=== PATIENT | male | born 1960 | race Caucasian/White ===

== ENCOUNTER → 2019-03-16 10:25 | Outpatient (CLI) | payer OTHER, SELFPAY ==
[2019-03-16 12:45] LABS: Albumin, Serum 3.6 g/dL (3.2-5.0); BUN 19 mg/dL (7-18); BUN/Creat Ratio 8.3 RATIO (10-20); Calcium,Total 9.1 mg/dL (8.5-10.1); Chloride 109 mmol/L (98-107); Creatinine, Serum 2.28 mg/dL (0.70-1.30); EST Glomerular Filtration Rate 31 mL/min (>60); Est Glom Filt Rate - Afr Amer 38 mL/min (>60); Glucose 116 mg/dL (74-106); Phosphorus 2.8 mg/dL (2.5-4.9); Potassium 4.2 mmol/L (3.5-5.1); Sodium Level 141 mmol/L (136-145)
== END ==
PROVIDERS: Family Provider Internal Medicine; PCP Internal Medicine; Visit Provider Internal Medicine Nephrology
DX: N18.3 Chronic kidney disease, stage 3 (moderate) (principal)
CPT/HCPCS: 36415; 80069

== ENCOUNTER → 2019-06-15 09:38 | Outpatient (CLI) | payer OTHER, SELFPAY ==
[2017-03-24 23:13] VITALS: BMI 32.7
[2019-06-15 09:42] LABS: Bacteria 0 SEEN /hpf (None Seen); Mucous, Urine 0 SEEN /hpf (<or=2+); Red Blood Cells-Urine 0 SEEN /hpf (0-5); Squamous Epithelial Cells - UA 0 SEEN /hpf (0-5); White Blood Cells 0 SEEN /hpf (0-5)
[2019-06-15 12:18] LABS: Color, Urine Yellow (Yellow); Glucose, Dipstick Normal (Normal); Ketone-Dipstick Negative (Negative); Leukocyte Esterase-Dipstick Negative /ul (Negative); Nitrite-Dipstick Negative (Negative); Occult Blood-Urine Negative /ul (Negative); Protein-Dipstick Negative (Negative); Urine Bilirubin Dipstick Negative (Negative); Urine Clarity Clear (Clear); Urine Urobilinogen Normal (Normal)
== END ==
LOC: POLAB3 09:39 → LABSPEC 09:42
PROVIDERS: PCP Internal Medicine; Visit Provider Internal Medicine Nephrology
DX: N17.9 Acute kidney failure, unspecified (principal)
CPT/HCPCS: 36415; 81001

== ENCOUNTER → 2019-06-22 09:29 | Outpatient (CLI) | payer OTHER, SELFPAY ==
[2017-03-24 23:13] VITALS: BMI 32.7
--- NOTE | 2019-06-22 09:39 | US_ITS ---
STUDY: RENAL ULTRASOUND - COMPLETE REASON FOR EXAM: Male, 58 years old. ACUTE KIDNEY FAILURE TECHNIQUE: Ultrasound evaluation of the kidneys was performed with real-time and static brown-scale imaging. COMPARISON: None. FINDINGS: RIGHT KIDNEY: Normal location of the right kidney, which is normal in size. The right kidney measures 11 cm x 5.1 cm x 5.7 cm. There is a normal cortex of the right kidney. The renal cortex measures 1.9 cm. There is a 1.9 cm x 2.3 cm x 1.9 cm cyst in the upper pole of the right kidney. There are no right renal calculi. There is no right hydronephrosis. DISTAL RIGHT URETER: There is non-visualization of the distal right ureter. There is no demonstrated right ureterovesical junction calculus. There is a visualized right ureteral jet. LEFT KIDNEY: with mild renal atrophy. The left kidney measures 8.2 cm x 3.6 cm x 5.0 cm. There is a normal cortex of the left kidney. The renal cortex measures 1.3 cm. There is a 2.5 cm x 3.3 cm x 2.4 cm complex cyst in the upper pole. Correlation with the scan is recommended. There are no left renal calculi. There is no left hydronephrosis. DISTAL LEFT URETER: There is non-visualization of the distal left ureter. There is no demonstrated left ureterovesical junction calculus. There is no demonstrated left ureteral jet. BLADDER: The distended urinary bladder has a volume of 129 ml. There is a normal wall thickness of the distended urinary bladder. There is no demonstrated mass within the urinary bladder. There are no demonstrated bladder calculi. US/Kidney and Bladder IMPRESSION: Complex cyst in the upper pole of the left kidney. Correlation with a CT scan is recommended. Electronically Signed: Jay Bassett, at 11:11 EDT , Service support ,
== END ==
PROVIDERS: Family Provider Internal Medicine; PCP Internal Medicine; Referring Provider Internal Medicine Nephrology; Visit Provider Internal Medicine Nephrology
DX: N17.9 Acute kidney failure, unspecified (principal)
CPT/HCPCS: 76770

== ENCOUNTER → 2019-08-14 13:20 | Outpatient (CLI) | payer OTHER, SELFPAY ==
--- NOTE | 2019-08-14 13:27 | CT_ITS ---
STUDY: CT ABDOMEN AND PELVIS WITHOUT CONTRAST REASON FOR EXAM: Male, 59 years old. CKD3, LEFT RENAL CYST, ABNORMAL LABS RADIATION DOSAGE (If Supplied By Facility): CTDIvol = ( 14.75 ) mGy, DLP = ( 771.33 ) mGycm TECHNIQUE: Transaxial images were obtained from the dome of the diaphragm to the symphysis pubis without oral contrast, and without intravenous contrast. Sagittal and coronal images were reconstructed. Individualized dose optimization techniques were used for this CT. COMPARISON: None. FINDINGS: Increased interstitial markings at the lung bases with confluence more prominent on the right side suggestive of chronic interstitial fibrosis. Coronary artery calcification. Normal liver. Normal gallbladder and extrahepatic biliary system. Normal spleen. Normal pancreas. There is a small, circumscribed, smooth, low attenuation left adrenal mass, consistent with an adrenal adenoma. This measures 2.6 cm by 1.9 cm. Normal right adrenal gland. Normal right kidney. There is a 3.4 cm by 2.7 cm cyst in the upper medial portion of the left kidney. There is also evidence of a 1.5 cm x 2.2 cm hypodense nodule in the anterior lateral aspect of the left kidney. This is not a typical cyst. There is a small hiatal hernia. Normal small intestine. There are multiple colonic diverticula consistent with diverticulosis. The appendix is visualized and appears normal. There is diffuse atherosclerotic calcification of the abdominal aorta. There is a aneurysmal dilatation of the infrarenal abdominal aorta with a transverse dimension of 5.3 cm. Normal inferior vena cava. Normal retroperitoneum. Mildly thickened urinary bladder wall. There are prostatic calcifications. Normal abdominal wall. There are diffuse degenerative changes of the visualized lumbar spine. CT/Abdomen/Pelvis without Cont IMPRESSION: Left renal cyst medially. 1.5 cm x 2.2 cm hypodense nodule in the anterior lateral aspect of the left kidney. This not a typical cyst. Prior sonogram of the left kidney demonstrated this to be a complex cyst. 2.6 x 1.9 cm left adrenal adenoma. Infrarenal abdominal aortic aneurysm with a transverse dimension of 5.3 cm. Chronic interstitial fibrosis worse at the right lung base. Electronically Signed: Jay Bassett, at 13:52 EDT , Service support ,
== END ==
PROVIDERS: PCP Internal Medicine; Referring Provider Nurse Practitioner Adult Health; Visit Provider Nurse Practitioner Adult Health
DX: N28.1 Cyst of kidney, acquired (principal)
CPT/HCPCS: 74176

== ENCOUNTER → 2019-08-31 09:22 | Outpatient (CLI) | payer OTHER, SELFPAY ==
[2017-03-24 23:13] VITALS: BMI 32.7
[2019-08-31 13:08] LABS: Urine Sodium 71 mmol/L (Not Establ.)
== END ==
PROVIDERS: PCP Internal Medicine; Visit Provider Internal Medicine Nephrology
DX: N17.9 Acute kidney failure, unspecified (principal); N18.3 Chronic kidney disease, stage 3 (moderate)
CPT/HCPCS: 82570; 84300

== ENCOUNTER → 2019-09-05 16:16 | Outpatient (CLI) | payer OTHER, SELFPAY ==
[2017-03-24 23:13] VITALS: BMI 32.7
== END ==
PROVIDERS: PCP Internal Medicine; Referring Provider Internal Medicine Nephrology; Visit Provider Internal Medicine Nephrology
DX: N18.3 Chronic kidney disease, stage 3 (moderate) (principal)
CPT/HCPCS: 82570

== ENCOUNTER → 2020-02-26 06:40 | Outpatient (CLI) | payer OTHER, SELFPAY ==
--- NOTE | 2020-02-26 06:42 | CT_ITS ---
STUDY: CT ABDOMEN AND PELVIS WITHOUT CONTRAST REASON FOR EXAM: Male, 59 years old. FOLLOW UP RENAL CYST RADIATION DOSAGE (If Supplied By Facility): CTDIvol = ( 20.94 ) mGy, DLP = ( 1098.75 ) mGycm TECHNIQUE: Transaxial images were obtained from the dome of the diaphragm to the symphysis pubis without oral contrast, and without intravenous contrast. Sagittal and coronal images were reconstructed. Individualized dose optimization techniques were used for this CT. COMPARISON: Comparison is made with prior study dated 08/14/2019. FINDINGS: Stable increased interstitial markings at both lung bases with areas of confluence worse on the right side. This is suggestive of a chronic interstitial fibrosis. Coronary artery calcification. Normal liver. Normal gallbladder and extrahepatic biliary system. Normal spleen. Normal pancreas. There is a small, circumscribed, smooth, low attenuation left adrenal mass, consistent with an adrenal adenoma. This is unchanged. Normal right adrenal gland. Normal right kidney. Stable 3.4 cm x 2.7 cm cyst in the upper medial aspect of the left kidney. There is also evidence of a 2.4 cm x 2.2 cm isodense nodule in the lateral anterior aspect of the midportion of the left kidney. This has increased slightly in size. This is not a typical cyst. Normal visualized stomach. Normal small intestine. Normal colon. The appendix is visualized and appears normal. There is diffuse atherosclerotic calcification of the abdominal aorta. Stable fusiform infrarenal abdominal aortic aneurysm with a transverse dimension of 5.7 cm. Normal inferior vena cava. Normal retroperitoneum. Normal urinary bladder. There are prostatic calcifications. Normal abdominal wall. Disc space narrowing and disc degeneration at the L5-S1 level. Stable grade I anterolisthesis of L5 on S1 with spondylolysis of the pars interarticularis. CT/Abdomen/Pelvis without Cont IMPRESSION: Stable examination except for slight enlargement of the accidents nodule in the lateral anterior aspect of the midportion of the left kidney inferiorly. A repeat CT scan following IV contrast is recommended. Electronically Signed: Jay Bassett, at 11:09 EST , Service support ,
[2020-02-26 07:00] LABS: CREATININE FINGERSTICK 2.8 mg/dL (0.70-1.30)
== END ==
PROVIDERS: PCP Internal Medicine; Referring Provider Urology; Visit Provider Urology
DX: N28.1 Cyst of kidney, acquired (principal)
CPT/HCPCS: 74176

== ENCOUNTER 2021-01-22 16:06 | Outpatient (RCR) | payer OTHER, SELFPAY | END 2021-02-26 23:59 | LOC: IMMUN 16:06 | PROVIDERS: PCP Internal Medicine; Visit Provider Family Medicine | DX: Z23 Encounter for immunization (principal) | CPT/HCPCS: 0001A; 91300 ==

== ENCOUNTER → 2021-02-12 11:07 | Outpatient (CLI) | payer OTHER, SELFPAY | PROVIDERS: PCP Internal Medicine; Visit Provider Family Medicine | DX: Z23 Encounter for immunization (principal) | CPT/HCPCS: 0002A; 91300 ==

== ENCOUNTER 2021-06-10 09:43 | Outpatient (CLI) | payer OTHER, SELFPAY ==
[2021-06-10 11:23] LABS: PSA,Total - Annual Screen 0.73 ng/mL (0.00-4.00)
== END 2021-06-10 23:59 | disposition home or self-care (01) ==
LOC: LAB 09:47
PROVIDERS: PCP Internal Medicine; Referring Provider Urology; Visit Provider Urology
DX: Z12.5 Encounter for screening for malignant neoplasm of prostate (principal)
CPT/HCPCS: 36415; 84153; G0103

== ENCOUNTER 2021-06-16 15:48 | Outpatient (CLI) | payer OTHER, SELFPAY ==
--- NOTE | 2021-06-16 15:52 | US_ITS ---
RENAL ULTRASOUND CLINICAL HISTORY: KIDNEY CYST. TECHNIQUE: Capps scale and limited color imaging of the kidneys, bladder, inferior vena cava, and aorta. COMPARISON: CT abdomen pelvis 02/26/2020 FINDINGS: The right kidney measures 10.9 cm. The echogenicity is normal. There is no hydronephrosis or perinephric collection. There is no focal renal mass or calculus seen. Atrophic left kidney measures 8.2 cm. Left renal cortical thinning. There is no hydronephrosis or perinephric collection. There is no calculus seen. Multiple cystic structures in the left kidney measuring up to 3.3 cm without discrete associated increased vascularity, similar in size compared to the prior CT given differences in modality. Bladder is partially decompressed, prevoid bladder volume = 126 cc, post void = 31 cc. US/Kidney and Bladder IMPRESSION: 1. No hydronephrosis. 2. Left renal cysts measuring up to 3.3 cm 3. Left renal cortical thinning, suggestive of medical renal disease. 4. 31 cc postvoid residual. Electronically Signed: Wayne Rey MD at 6:55 EDT ,
== END 2021-06-16 23:59 | disposition home or self-care (01) ==
LOC: US 15:49
PROVIDERS: PCP Internal Medicine; Visit Provider Urology
DX: N28.1 Cyst of kidney, acquired (principal)
CPT/HCPCS: 76770